=== PATIENT | female | born 1965 | race Caucasian/White ===

== ENCOUNTER 2016-12-20 05:29 | Day surgery (SDC) | payer BC, OTHER ==
[~2016-12-20] VITALS: Ht 175.3 cm; Wt 76.0 kg
[~2016-12-20 05:29] MED LIST: CELEBREX200 M1 PO; FISH OIL 1,2001 EAC5 PO; LIPITOR10 M1 PO; MULTIVITAMINS1 EAC6 PO; PRINIVIL5 M1 PO; TUMERIC PO; VITAMIN D/CALCIUM PO; VITAMIN E400 UNI4 PO
== END 2016-12-20 17:17 ==
LOC: SRG 05:29 → SHSB 05:29 → SRG 05:30 → MAMMO 07:30 → ORW 10:49 → PACU 12:20 → SHSB 14:00 → SRG 17:17
PROC: 0HBT0ZZ Excision of Right Breast, Open Approach (ICD-10-PCS; principal; 2016-12-20)
PROC: 07B50ZX Excision of Right Axillary Lymphatic, Open Approach, Diagnostic (ICD-10-PCS; 2016-12-20)
DX: C50.211 Malignant neoplasm of upper-inner quadrant of right female breast (principal); I10 Essential (primary) hypertension; E78.5 Hyperlipidemia, unspecified; M19.90 Unspecified osteoarthritis, unspecified site; I34.1 Nonrheumatic mitral (valve) prolapse; J45.909 Unspecified asthma, uncomplicated; Z79.899 Other long term (current) drug therapy; Z90.711 Acquired absence of uterus with remaining cervical stump; Z17.0 Estrogen receptor positive status [ER+]; Z98.890 Other specified postprocedural states
CPT/HCPCS: A4648; A9520; J0690; J1170; J2250; J2765; J3010; Q9968